=== PATIENT | male | born 1980 | race Two or more races ===

== ENCOUNTER 2018-04-24 21:57 | Emergency (ER) | payer OTHER ==
[~2018-04-24] VITALS: Ht 175.3 cm; Wt 66.7 kg
--- NOTE | 2018-04-24 22:05 | NUR ---
RECEIVED PATIENT IN ROOM WITH C/O POSSIBLE LOC, PATIENT STATES HE FEELS LIKE HE HAS CARBONMONOXIDE POISOING, GOING IN AND OUT OF CONCIOUSNESS, NOT REMEMBERING WHAT HAPPENS, DENIES DRUG USE, AAOX4, ROBINS,VSS, SKIN WARM AND DRY, EXAMIED BY ER DOCTOR, ORDERS NOTED.
[2018-04-24 23:10] LABS: ABG BASE EXCESS 3.5 mmol/L; ABG HCO3 27.7 mmol/L; ABG PCO2 40.4 mmHg (35.0-45.0); ABG PH 7.454 (7.350-7.450); ABG PO2 91.3 mmHg (75.0-100.0); ABG SITE RIGHT RADIAL; ABG TOTAL HEMOGLOBIN 16.4 G/dL (13.5-18.0); COHb 1.8 % (0.5-1.5); MetHb 0.2 % (0.0-1.5); O2Hb 95.9 % (94.0-97.0); VENT MODE ROOM AIR
[2018-04-24 23:16] LABS: BASOPHILS % (AUTO) 0.2 % (0.0-2.0); EOSINOPHILS % (AUTO) 0.1 % (0.0-7.0); HEMATOCRIT 45.2 % (36.7-47.1); HEMOGLOBIN 15.7 g/dL (12.5-16.3); LYMPHOCYTES # (AUTO) 1.5 K/uL (20.0-40.0); LYMPHOCYTES % (AUTO) 12.6 % (20.5-51.5); MEAN CORPUSCULAR HEMOGLOBIN 32.1 uug (23.8-33.4); MEAN CORPUSCULAR HGB CONC 35 g/dL (32.5-36.3); MEAN CORPUSCULAR VOLUME 92.5 fL (73.0-96.2); MONOCYTES # (AUTO) 0.7 K/uL (2.0-10.0); MONOCYTES % (AUTO) 5.7 % (0.0-11.0); NEUTROPHILS # (AUTO) 9.8 K/uL (1.8-8.9); NEUTROPHILS % (AUTO) 81.4 % (38.5-71.5); PLATELET COUNT (AUTO) 262 K/uL (152-348); RED BLOOD CELL COUNT(AUTO) 4.89 MIL/uL (4.06-5.63)
[2018-04-24 23:22] LABS: CREATININE 0.8 mg/dL (0.6-1.3); POTASSIUM 3.6 mmol/L (3.5-5.1)
[2018-04-24 23:27] LABS: BILIRUBIN,TOTAL 0.4 mg/dL (0.2-1.0); TOTAL PROTEIN, SERUM 7.7 g/dL (6.4-8.2)
--- NOTE | 2018-04-25 00:19 | NUR ---
ALL LABS AND CT RESULTS NEGATIVE, RESULTS GIVEN TO PATIENT, D/C HOME WITH INSTRUCTIONS TO DECREASE DOSE OF TRUVADA. LEFT IN STABLE CONDITION.
[2018-04-25 00:20] VITALS: BP 149/102
== END 2018-04-25 00:26 | disposition home or self-care (01) ==
LOC: ER 21:59
DX: Z00.00 Encounter for general adult medical examination without abnormal findings (principal); F17.200 Nicotine dependence, unspecified, uncomplicated
CPT/HCPCS: 36415; 36600; 70450; 83690; 85025; A4663